=== PATIENT | female | born 1940 | race Hispanic/Latino ===

== ENCOUNTER 2017-12-30 15:45 | Outpatient (CLI) | payer MEDICARE | END 2017-12-30 15:46 | disposition home or self-care (01) | LOC: BICMAMMO 15:45 | PROVIDERS: ATTEND Family Medicine | DX: Z12.31 Encounter for screening mammogram for malignant neoplasm of breast (principal) | CPT/HCPCS: 77063; 77067 ==

== ENCOUNTER 2018-01-21 14:48 | Outpatient (CLI) | payer MEDICARE | END 2018-01-21 14:49 | disposition home or self-care (01) | LOC: BICRAD 14:48 | PROVIDERS: ATTEND Family Medicine | DX: R10.84 Generalized abdominal pain (principal); Z98.1 Arthrodesis status; Z90.49 Acquired absence of other specified parts of digestive tract | CPT/HCPCS: 71045; 74019 ==

== ENCOUNTER 2018-03-08 08:00 | Outpatient (CLI) | payer MEDICARE | END 2018-03-08 08:01 | disposition home or self-care (01) | LOC: BICMRI 08:00 | PROVIDERS: ATTEND Family Medicine | DX: M51.36 Other intervertebral disc degeneration, lumbar region (principal); M47.896 Other spondylosis, lumbar region; M99.83 Other biomechanical lesions of lumbar region; Z98.890 Other specified postprocedural states | CPT/HCPCS: 72148 ==

== ENCOUNTER 2018-03-25 09:32 | Outpatient (CLI) | payer MEDICARE ==
--- NOTE | 2018-03-25 11:28 | RAD ---
LUMBAR SPINE 3 VIEWS: HISTORY: A 77-year-old female with low back pain and left leg numbness. COMPARISON: 01/22/17. FINDINGS: Standing neutral, flexion, and extension lateral views demonstrate extensive postop laminectomy montilla es of the lower lumbar spine with pedicle screw placement at L5-S1 with intradiskal prosthesis. No a bnormal translation between flexion and extension overall stable from prior study. IMPRESSION: Stable postoperative changes. No significant abnormal translation between flexion and extension. POS: OFF
== END 2018-03-25 09:33 | disposition home or self-care (01) ==
LOC: TBSIIMAG 09:32
PROVIDERS: ATTEND Neurological Surgery
DX: M48.061 Spinal stenosis, lumbar region without neurogenic claudication (principal); Z98.890 Other specified postprocedural states
CPT/HCPCS: 72100

== ENCOUNTER 2018-08-12 23:13 | Emergency (ER) | payer MEDICARE ==
[2018-08-13] MEDS ORDERED: cloNIDine 0.1 MG TAB ONE (00:02)
[2018-08-13] MEDS ORDERED: Ketorolac Tromethamine 30 MG/ML VIAL ONE (00:18)
[2018-08-13] MEDS ORDERED: Methocarbamol 500 MG TAB PO SCH (00:30)
[2018-08-13 00:34] LABS: #Basophils 0.1 thou/uL (0.0-0.2); #Eosinphils 0.2 thou/uL (0.0-0.7); #Lymphocytes 2.1 thou/uL (1.20-3.40); #Monocytes 0.5 thou/uL (0.11-0.59); #Neutrophils 3.8 thou/uL (1.40-6.50); %Basophils 1.1 % (0.0-1.0); %Eosinophils 2.4 % (0.0-10.0); %Lymphocytes 31.6 % (21.0-51.0); %Monocytes 6.9 % (0.0-10.0); Hemoglobin 11.2 g/dL (12.0-16.0); Mean Corpuscular HGB CONC 32.4 g/dL (32.0-36.0); Mean Corpuscular Hemoglobin 29.6 pg (27.0-31.0); Mean Corpuscular Volume 91.4 fL (78.0-98.0); Mean Platelet Volume 7.3 fL (7.4-10.4); Platelet Count 227 thou/uL (130-400); RBC Distribution Width 12.9 % (11.5-14.5); Red Blood Cell (RBC) Count 3.78 mill/uL (4.20-5.40); White Blood Cell (WBC) Count 6.5 thou/uL (4.8-10.8)
[2018-08-13 00:54] LABS: ALT (SGPT) 23 U/L (8-55); AST (SGOT) 23 U/L (5-34); Albumin 4.3 g/dL (3.4-4.8); Alkaline Phosphatase 119 U/L (40-150); Anion Gap 14 mmol/L (10-20); BUN (Urea Nitrogen) 22 mg/dL (9.8-20.1); Bilirubin, Total 0.3 mg/dL (0.2-1.2); CK (CPK) 233 U/L (29-168); Calc. Creatinine Clearance 0 mL/min (70-130); Calcium 9.4 mg/dL (7.8-10.44); Carbon Dioxide 23 mmol/L (23-31); Chloride 103 mmol/L (98-107); Estimated GFR-MDRD 47; Globulin 3.3 g/dL (2.4-3.5); Glucose 96 mg/dL (83-110); Potassium 3.7 mmol/L (3.5-5.1); Protein, Total 7.6 g/dL (6.0-8.3); Sodium 136 mmol/L (136-145)
[2018-08-13 00:59] LABS: CKMB 2.6 ng/mL (0-6.6); Troponin I Less than 0.010 ng/mL (< 0.028)
[2018-08-13] MEDS ORDERED: traMADol HCl 50 MG TAB ONE (01:17)
== END 2018-08-13 01:51 | disposition home or self-care (01) ==
LOC: ERS 23:13
DX: M79.605 Pain in left leg (principal); I10 Essential (primary) hypertension; E11.9 Type 2 diabetes mellitus without complications; E78.00 Pure hypercholesterolemia, unspecified
CPT/HCPCS: 36415; 80053; 82550; 82553; 84484; 85025; 93005; 96372; J1885

== ENCOUNTER 2018-08-19 14:44 | Outpatient (CLI) | payer MEDICARE ==
--- NOTE | 2018-08-19 15:28 | RAD ---
LUMBAR SPINE RADIOGRAPHS 3 VIEWS: DATE: 08/19/18. PROVIDED CLINICAL HISTORY: Radiculopathy. FINDINGS: Comparison 03/25/18. Postoperative changes as previously described are redemonstrated without evidence for hardware loosening or migration. Lumbar alignment appears unchanged. There is no evidence for abnormal translational motion with flexion and extension. IMPRESSION: As above. POS: [facility]AG[facility]
== END 2018-08-19 14:45 | disposition home or self-care (01) ==
LOC: BICRAD 14:44
PROVIDERS: ATTEND Neurological Surgery
DX: M54.16 Radiculopathy, lumbar region (principal); Z98.890 Other specified postprocedural states
CPT/HCPCS: 72100

== ENCOUNTER 2018-08-27 13:34 | Outpatient (CLI) | payer MEDICARE ==
--- NOTE | 2018-08-31 23:45 | ULT ---
LOWER EXTREMITY ARTERIAL EVALUATION USING DOPPLER WAVEFORM ANALYSIS AND SEGMENTAL LIMB PRESSURES: Examination of the Doppler waveforms in both lower extremities are essentially normal bilaterally. A nkle-arm index on the right leg is 0.96 and on the left leg is 1.2. Toe-brachial index is slightly b elow normal bilaterally. This study suggests normal overall vascular supply to the lower extremities. Decreased digital plet hysmography could be consistent with her history of diabetes, but would not be consistent with any va scular claudication or ischemic rest pain.
== END 2018-08-27 13:35 | disposition home or self-care (01) ==
LOC: ULT 13:34
PROVIDERS: ATTEND Family Medicine
DX: I73.9 Peripheral vascular disease, unspecified (principal)
CPT/HCPCS: 93922

== ENCOUNTER 2018-10-25 17:20 | Emergency (ER) | payer MEDICARE ==
--- NOTE | 2018-10-25 18:36 | RAD ---
PORTABLE CHEST: Date: 10/25/18 HISTORY: Chest pain. COMPARISON: 02/12/15 study. FINDINGS: Heart size and mediastinum are within normal limits. The lungs are clear of infiltrates. No significa nt bony findings. IMPRESSION: No active intrathoracic disease. POS: [facility]
[2018-10-25 18:40] LABS: #Lymphocytes 0.5 thou/uL (1.20-3.40); #Neutrophils 6.3 thou/uL (1.40-6.50); %Basophils 0.2 % (0.0-1.0); %Eosinophils 0.1 % (0.0-10.0); %Lymphocytes 7.4 % (21.0-51.0); %Monocytes 0.6 % (0.0-10.0); %Neutrophils 91.8 % (42.0-75.0); Hemoglobin 11.6 g/dL (12.0-16.0); Mean Corpuscular HGB CONC 33.8 g/dL (32.0-36.0); Mean Corpuscular Hemoglobin 31.2 pg (27.0-31.0); Mean Corpuscular Volume 92.2 fL (78.0-98.0); Mean Platelet Volume 6.9 fL (7.4-10.4); Platelet Count 311 thou/uL (130-400); RBC Distribution Width 12.7 % (11.5-14.5); Red Blood Cell (RBC) Count 3.72 mill/uL (4.20-5.40); White Blood Cell (WBC) Count 6.9 thou/uL (4.8-10.8)
[2018-10-25 18:49] LABS: Bilirubin Negative (Negative); Blood, Urine Negative (Negative); Clarity CLEAR (Clear); Glucose, Urine (Dipstick) >=1000 mg/dL (Negative); Leukocyte Negative (Negative); Nitrite Negative (Negative); Protein, Urine (Dipstick) Negative (Neg-Trace); Specific Gravity, Urine 1.016 (1.002-1.036); Urobilinogen 0.2 mg/dL (0.2-1.0); pH, Urine 6.5 (5.0-9.0)
[2018-10-25 18:58] LABS: CKMB 1.2 ng/mL (0-6.6); Troponin I Less than 0.010 ng/mL (< 0.028)
[2018-10-25 19:01] LABS: ALT (SGPT) 17 U/L (8-55); AST (SGOT) 21 U/L (5-34); Albumin 4.1 g/dL (3.4-4.8); Alkaline Phosphatase 110 U/L (40-150); Anion Gap 16 mmol/L (10-20); BUN (Urea Nitrogen) 28 mg/dL (9.8-20.1); Bilirubin, Total 0.2 mg/dL (0.2-1.2); CK (CPK) 81 U/L (29-168); Calc. Creatinine Clearance 0 mL/min (70-130); Calcium 9.6 mg/dL (7.8-10.44); Carbon Dioxide 19 mmol/L (23-31); Chloride 101 mmol/L (98-107); Estimated GFR-MDRD 37; Globulin 3.8 g/dL (2.4-3.5); Glucose 422 mg/dL (83-110); Lipase 42 U/L (8-78); Potassium 4.8 mmol/L (3.5-5.1); Protein, Total 7.9 g/dL (6.0-8.3); Sodium 131 mmol/L (136-145)
[2018-10-25] MEDS ORDERED: Insulin Regular 300 UNITS/3 ML VIAL ONE (19:09)
== END 2018-10-25 20:00 | disposition home or self-care (01) ==
LOC: ERS 17:20
DX: E11.65 Type 2 diabetes mellitus with hyperglycemia (principal); I10 Essential (primary) hypertension; Z79.899 Other long term (current) drug therapy
CPT/HCPCS: 36416; 71045; 80053; 81003; 82010; 82553; 83690; 83880; 84484; 85025; 93005; 96374; J1100; J1815; J2001; S0020

== ENCOUNTER 2019-01-03 08:30 | Outpatient (CLI) | payer MEDICARE | END 2019-01-03 08:31 | disposition home or self-care (01) | LOC: BICMAMMO 08:30 | PROVIDERS: ATTEND Family Medicine | DX: Z12.31 Encounter for screening mammogram for malignant neoplasm of breast (principal) | CPT/HCPCS: 77063; 77067 ==

== ENCOUNTER 2019-02-15 15:48 | Outpatient (CLI) | payer MEDICARE ==
--- NOTE | 2019-02-15 16:35 | RAD ---
FLeft hip: 2 views HISTORY: Fall with injury to left heel FINDINGS: Femoral head contour normally preserved. No fracture. Mild degenerative change. IMPRESSION: No acute fracture identified.
--- NOTE | 2019-02-15 16:48 | RAD ---
LUMBAR SPINE FOUR VIEWS: 02/15/19 HISTORY: Fall. Low back pain. FINDINGS: There is mild dextroscoliosis of the lumbar spine with degenerative changes. There are postop changes of posterior spinal fusion at L4 and L5 levels with bilateral pedicle screws and intradiscal prostheses. No compression fracture is seen. The metallic hardware is intact. Postop changes of the laminectomy are seen at L2-L5 levels. POS: OFF
== END 2019-02-15 15:49 | disposition home or self-care (01) ==
LOC: BICRAD 15:48
PROVIDERS: ATTEND Family Medicine
DX: M25.552 Pain in left hip (principal); M54.5 Low back pain
CPT/HCPCS: 72110

== ENCOUNTER 2019-03-14 08:53 | Outpatient (CLI) | payer MEDICARE ==
--- NOTE | 2019-03-14 09:56 | ULT ---
Renal sonogram HISTORY: N18.3. Chronic renal disease. FINDINGS: The right kidney is 9.8 cm. No hydronephrosis. Parapelvic cyst centrally is 1.5 cm greatest diameter. Left kidney is 8.2 cm. No hydronephrosis. Urinary bladder has a normal appearance. Bilateral ureteral jets visualized. IMPRESSION: No evidence of urinary tract obstruction or other acute abnormality. Right renal cyst.
== END 2019-03-14 08:54 | disposition home or self-care (01) ==
LOC: BICULT 08:53
PROVIDERS: ATTEND Internal Medicine Nephrology
DX: N18.3 Chronic kidney disease, stage 3 (moderate) (principal); N28.1 Cyst of kidney, acquired
CPT/HCPCS: 76770

== ENCOUNTER 2019-04-04 10:03 | Outpatient (CLI) | payer MEDICARE ==
--- NOTE | 2019-04-04 11:23 | BD ---
DEXA BONE DENSITY EXAM: HISTORY: A 78-year-old postmenopausal female for screening. FINDINGS: BMD (g/cm2) T-SCORE LEFT FEMORAL NECK 0.678 -1.5 TOTAL PROXIMAL LEFT FEMUR 0.936 -0.1 RIGHT FEMORAL NECK 0.741 -1.0 TOTAL PROXIMAL RIGHT FEMUR 0.965 0.2 IMPRESSION: Osteopenia. This patient has a 10 year WHO fracture risk for a major osteoporotic fracture of 15% an d for a hip fracture of 3.3%. POS: [facility]
== END 2019-04-04 10:04 | disposition home or self-care (01) ==
LOC: BICMAMMO 10:03
PROVIDERS: ATTEND Internal Medicine Gastroenterology
DX: Z13.820 Encounter for screening for osteoporosis (principal); M19.90 Unspecified osteoarthritis, unspecified site; K21.9 Gastro-esophageal reflux disease without esophagitis; R10.32 Left lower quadrant pain; M85.851 Other specified disorders of bone density and structure, right thigh; M85.852 Other specified disorders of bone density and structure, left thigh
CPT/HCPCS: 77080

== ENCOUNTER 2019-04-28 09:01 | Outpatient (CLI) | payer MEDICARE ==
--- NOTE | 2019-04-28 11:20 | ULT ---
ULTRASOUND THYROID: Date: 04/28/19 HISTORY: Follow-up thyroid nodule. COMPARISON: Thyroid ultrasound of 12/17/15, images of ultrasound-guided fine needle aspiration of thyroid on 02/22 03/07. FINDINGS: Isthmus: 0.4 cm AP Right lobe: 5.2 x 2.0 x 1.2 cm Left lobe: 6.4 x 2.0 x 2.9 cm Again noted is the solid nodule at the lower pole of the left lobe measuring 2.6 x 2.6 x 2.3 cm. Its echogenicity is slightly heterogeneous. Margins are well circumscribed. There is some blood flow with in it. This has not grown since the previous ultrasounds. Composition: Solid: 2.2 points Echogenicity: Isoechoic: 1 point Shape: Wider than tall: 0.2 points Margin: Smooth: 0.2 points Echogenic foci: None: 0 points Total Points: 3 TI-RADS Category 3: Mildly suspicious. RECOMMENDATION: FNA if greater than or equal to 2.5 cm. Follow-up if greater than or equal to 1.5 cm (at 1, 3, and 5 years). This meets the criteria for fine needle aspiration. Ultrasound-guided fine needle aspiration was performed in 2014. The pathology results of that are unk nown to this dictating radiologist at this time ([facility] access [facility] from dictating site). One more follow-up thyroid ultrasound is recommended for this in 2020, which would be the 5 year velma versary of its discovery. Barely visible on this ultrasound, and not mentioned by the welt slasher's notes, the superior edge of a hyperechoic rim with shadowing, abutting the inferior edge of this large nodule at the lower pole of the left lobe of the thyroid gland. But the rest of this hyperechoic mass is obscured by the clavi irvin. It is noted that on a CT angiogram of the neck from 2015, there was a large, coarse calcificatio n, inferior to the noncalcified nodule, that probably corresponds to this. Two additional tiny hypoechoic nodules are found on the current study: A 0.3 x 0.3 x 0.2 cm hypoechoic probably cystic lesion at lower pole of right lobe, highly likely to be benign. A 0.5 x 0.4 x 0.3 cm hypoechoic nodule, too small to characterize, but slightly favored to be solid, near the junction between the medial lower pole of the right lobe and the isthmus: Composition: Assumed to be solid: 2 points Echogenicity: Very hypoechoic: 3 points Shape: Taller than wide: 3 points Margin: Ill-defined: 0 points Echogenic foci: None: 0 points Total points: 8 TI-RADS category 5: Highly suspicious RECOMMENDATION: FNA if greater than or equal to 1 cm. Follow if greater than or equal to 0.5 cm (every year up to 5 years). IMPRESSION: 1. The TI-RADS category 3 solid nodule measuring slightly over 2.6 cm in the lower pole of the left thyroid gland, has been stable for 4 years. A final follow-up ultrasound next year would be the last follow-up necessary for this particular lesion. 2. Incompletely visualized on ultrasound (because it is obscured by clavicle), and originally found on CT angiogram of the chest, a moderate sized coarse macrocalcification at the far inferior pole of the left lobe of the thyroid gland is probably benign. 3. However, a tiny 0.5 cm TI-RADS category 5 (highly suspicious) nodule has been now found at the ju nction between the right side of the isthmus and medial lower pole of the right lobe. It is too small for fine needle aspiration. Recommend serial follow-up thyroid ultrasounds very year up to 5 years. CODE T. POS: CET
== END 2019-04-28 09:02 | disposition home or self-care (01) ==
LOC: BICULT 09:01
PROVIDERS: ATTEND Otolaryngology Plastic Surgery within the Head & Neck
DX: E04.1 Nontoxic single thyroid nodule (principal); E07.9 Disorder of thyroid, unspecified
CPT/HCPCS: 76536

== ENCOUNTER 2019-07-15 09:49 | Outpatient (CLI) | payer MEDICARE ==
[2019-07-15 11:03] LABS: Hemoglobin 11.4 g/dL (12.0-16.0); Mean Corpuscular Hemoglobin 30.3 pg (27.0-31.0); Mean Corpuscular Volume 89.3 fL (78.0-98.0); Mean Platelet Volume 7.1 fL (7.4-10.4); Platelet Count 241 thou/uL (130-400); Red Blood Cell (RBC) Count 3.77 mill/uL (4.20-5.40); White Blood Cell (WBC) Count 5.5 thou/uL (4.8-10.8)
[2019-07-15 11:09] LABS: PTT 32.8 SEC (22.9-36.1); Prothrombin Time 13.3 SEC (12.0-14.7)
== END 2019-07-15 09:50 | disposition home or self-care (01) ==
LOC: LABBT 09:49
PROVIDERS: ATTEND Neurological Surgery
DX: Z01.818 Encounter for other preprocedural examination (principal); M48.061 Spinal stenosis, lumbar region without neurogenic claudication; M54.16 Radiculopathy, lumbar region
CPT/HCPCS: 85027; 85610; 85730; 93005; 93010

== ENCOUNTER 2019-07-15 09:57 | Inpatient (IN) | payer MEDICARE ==
[2019-07-15 10:13] VITALS: BMI 34.3
--- NOTE | 2019-07-20 14:23 | HP ---
HISTORY OF PRESENT ILLNESS: Ms. Bryan is back in the office. She has tried some physical therapy for at least 4 weeks. The left leg is worse. The pain is over the greater trochanteric bursa, but also wraps to the knee itself. There is pain with standing for too long that response to repositioning of the back and sitting. Therapy with IT band stretching makes pain worse. PAST MEDICAL HISTORY: Hypertension, arthritis, high cholesterol, gait instability, thyroid nodule , diabetes, allergic rhinitis, external hemorrhoid, osteoarthritis bilateral, GERD, and chronic diarrhea. ALLERGIES: CHERATUSSIN. MEDICATIONS: 1. ProAir. 2. Nexium. 3. Premarin. 4. Calcium. 5. Iron supplement. 6. Myrbetriq. 7. Salonpas. 8. Atorvastatin. 9. Spironolactone. 10. Glyburide. 11. Mobic. 12. Atenolol. 13. Tylenol No. 3. 14. Cyclobenzaprine. 15. Medrol. PAST SURGICAL HISTORY: Right breast biopsy, knee arthroscopy, , tonsillectomy, left foot bunion hammertoe, cataract surgery, carpal tunnel bilaterally, rotator cuff right shoulder, laparoscopic gallbladder, lumbar laminectomy and fusion, left total knee. FAMILY HISTORY: Father is . Mother is , hypertension. SOCIAL HISTORY: Nonsmoker. Denies alcohol or drug use. She is retired and , has 11 children. PHYSICAL EXAMINATION: CONSTITUTIONAL: The patient is awake, alert, and oriented x3. No visible distress. RESPIRATIONS: Normal work of breathing on room air. Symmetric chest rise. NEUROLOGIC: Gait and station are normal. Motor exam, mild left hip flexor weakness and pain. Sensory exam, no loss of sensation except for length dependent peripheral lower extremity exam. Orthopedic tender left greater trochanteric bursa. IMAGING DATA: MRI, foraminal disease left L4 and L3 roots just above fusion. CT, pars fracture right L4, not on the left. Flexion-extension x-rays are stable. ASSESSMENT: Fracture of the fourth lumbar vertebra, intervertebral disk disorder with radiculopathy. PLAN: Dr. Mendiola has offered surgery left L3, L4 decompression with extension of fusion. She states that she understands the risks of surgery and is willing to proceed. Job ID: [id number]
[2019-07-22] MEDS ORDERED: Bupivacaine HCl 0.5%/Epinephrine 1:200,000/PF 30 ml Vial ONE (06:17)
[2019-07-22] MEDS ORDERED: Sodium Chloride 0.9% 30 ML ONE (06:17)
[2019-07-22] MEDS ORDERED: Thrombin 5000 UNITS/5 ML VIAL ONE (06:17)
[2019-07-22] MEDS ORDERED: Fentanyl 100 MCG/2 ML VIAL ONE ×4 (06:30→15:06)
[2019-07-22] MEDS ORDERED: Famotidine/PF 20 mg/2ml Vial ONE (06:30)
[2019-07-22] MEDS ORDERED: Lidocaine 1% PF 5 ML VIAL ONE (09:27)
[2019-07-22] MEDS ORDERED: Rocuronium Bromide 10 MG/ML (10ML VIAL) ONE (09:27)
[2019-07-22] MEDS ORDERED: Dexamethasone 20 MG/5 ML VIAL ONE (09:27)
[2019-07-22] MEDS ORDERED: ePHEDrine 50 MG/ML VIAL ONE (09:27)
[2019-07-22] MEDS ORDERED: Ondansetron PF 4 MG/2 ML Vial ONE (09:27)
[2019-07-22] MEDS ORDERED: Ketorolac Tromethamine 30 MG/ML VIAL ONE (09:27)
[2019-07-22] MEDS ORDERED: PROPOFOL 200 MG/20 ML VIAL ONE (09:27)
[2019-07-22] MEDS ORDERED: Metoclopramide HCl 10 MG/2 ML VIAL ONE (09:27)
[2019-07-22] MEDS ORDERED: SUGAMMADEX SODIUM 500 MG/5 ML VIAL ONE (13:50)
[2019-07-22] MEDS ORDERED: Ondansetron HCl/PF 4 MG/2 ML Vial IVP PRN (14:01)
[2019-07-22] MEDS ORDERED: Morphine 2 MG/ML SYRINGE SLOW IVP PRN (14:25)
[2019-07-22] MEDS ORDERED: Morphine 4 MG/ML VIAL SLOW IVP PRN (14:25)
[2019-07-22] MEDS ORDERED: Ondansetron PF 4 MG/2 ML Vial IVP PRN (14:25)
[2019-07-22] MEDS ORDERED: Promethazine 25 MG TAB PO PRN (14:25)
[2019-07-22] MEDS ORDERED: diphenhydrAMINE 50 MG/ML VIAL IVP PRN (14:25)
[2019-07-22] MEDS ORDERED: Mag-Al 1200 mg/1200 mg/30 ML UDCUP PO PRN (14:25)
[2019-07-22] MEDS ORDERED: traMADol HCl 50 MG TAB PO PRN (14:25)
[2019-07-22] MEDS ORDERED: Bisacodyl 10 MG SUPP PR PRN (14:25)
[2019-07-22] MEDS ORDERED: Promethazine HCl 25 MG/ML VIAL IM PRN (14:25)
[2019-07-22] MEDS ORDERED: Acetaminophen 325 MG TAB PO PRN (14:25)
[2019-07-22] MEDS ORDERED: Milk Of Magnesia 30 ML UDCUP PO PRN (14:25)
[2019-07-22] MEDS ORDERED: CEFAZOLIN 2 GM in Premix Bag 1 BAG IVPB SCH ×2 (14:30→22:00)
[2019-07-22] MEDS: Sodium Chloride 0.9% 1,000 ML IV SCH (17:36)
[2019-07-22] MEDS ORDERED: Dextrose 5% in Water 1,000 ML IV PRN (18:07)
[2019-07-22] MEDS ORDERED: hydrALAZINE 20 MG/ML VIAL SLOW IVP PRN (18:07)
[2019-07-22] MEDS ORDERED: Dextrose 50% Abboject 50 ML SYRINGE SLOW IVP PRN (18:07)
[2019-07-22] MEDS: CEFAZOLIN 2 GM in Premix Bag 1 BAG IVPB SCH (18:11)
--- NOTE | 2019-07-22 18:42 | CON ---
DATE OF CONSULTATION: PRIMARY CARE PHYSICIAN: Marybeth Garza MD CHIEF COMPLAINT: Management of medical comorbidities. HISTORY OF PRESENT ILLNESS: Ms. Bryan is a pleasant 79-year-old lady, who was seen at [facility] on July 22, 2019. She underwent lumbar spine surgery. Hospitalist Service has been consulted for management of medical comorbidities. She denies any chest pain or shortness of breath. She denies any fevers or chills. She denies any nausea or vomiting. REVIEW OF SYSTEMS: All systems were reviewed and found to be negative. PAST MEDICAL HISTORY: Hypertension, arthritis, dyslipidemia, thyroid nodule, diabetes mellitus type 2, external hemorrhoids, gastroesophageal reflux disease, chronic diarrhea. PAST SURGICAL HISTORY: Right breast biopsy, knee arthroscopy, left foot bunion, hammertoe, tonsillectomy, cataract surgery, carpal tunnel bilaterally, rotator cuff of right shoulder, laparoscopic cholecystectomy, lumbar laminectomy and fusion, and left total knee replacement. FAMILY HISTORY: Hypertension in her mother. SOCIAL HISTORY: The patient denies tobacco use, alcohol use, or recreational drug use. ALLERGIES: NO KNOWN DRUG ALLERGIES. HOME MEDICATIONS: 1. Atenolol 50 mg daily. 2. Atorvastatin 20 mg daily. 3. Flexeril 10 mg at bedtime. 4. Esomeprazole 40 mg daily. 5. Glimepiride 1 mg daily. 6. Meloxicam 7.5 mg 2 times a day. 7. Multivitamins one tablet daily. 8. Spironolactone 50 mg daily. PHYSICAL EXAMINATION: GENERAL: On examination, Ms. Bryan is awake and alert, not in acute distress. VITAL SIGNS: Blood pressure is 117/73, pulse 73, respiratory rate 14, and oxygen saturation 96% on room air. She is afebrile. EYES: No scleral icterus. No conjunctival pallor. ENT: Moist mucosal membranes. No oropharyngeal erythema or exudates. NECK: Supple, nontender. Trachea is midline. RESPIRATORY: Accessory muscles of breathing are not active. Chest wall movements are symmetric bilaterally. Lungs are clear to auscultation without wheeze, rhonchi, or crepitations. CARDIOVASCULAR: S1 and S2 are heard, regular. Peripheral pulses are palpable. No carotid bruit. No pericardial rub. ABDOMEN: Soft, nontender. Bowel sounds are heard. NEUROLOGIC: Cranial nerves 2 through 12 are intact. MUSCULOSKELETAL: Power is 5/5 in all 4 extremities. SKIN: No rashes or subcutaneous nodules. LYMPHATIC: No cervical lymphadenopathy. PSYCHIATRIC: Normal mood, normal affect. The patient is oriented to person, place, and time. LABORATORY DATA: Ms. Bryan's labs and investigations were reviewed. On July 15, she had normal white count, normocytic anemia with hemoglobin 11.4, normal platelet count. INR was 1.0. ASSESSMENT AND PLAN: Ms. Bryan is a pleasant 79-year-old lady, who was seen at [facility] on July 22, 2019. Her problem list includes: 1. Hypertension: This appears to be controlled now. Continue beta-valente during the perioperative period. Monitor vital signs and titrate antihypertensives as needed. Add p.r.n. IV hydralazine for blood pressure spikes. 2. Diabetes mellitus, type 2: Continue glimepiride. Start Accu-Cheks and insulin sliding scale. 3. Dyslipidemia: Continue atorvastatin. 4. Gastroesophageal reflux disease: Appears to be stable. Many thanks for allowing me to participate in your patient's care. Please feel free to contact me with any questions or concerns. LEVEL OF RISK: Moderate. LEVEL OF COMPLEXITY: Moderate. Job ID: [id number]
--- NOTE | 2019-07-22 20:10 | OP ---
DATE OF PROCEDURE: 07/22/2019 [facility] DEVELOPER: Khalida Lo PA-C PREOPERATIVE INDICATION: Treat pain and prevent neurological deterioration. 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 POSTOPERATIVE DIAGNOSES: Severe left L3-4 and left L4-5 foraminal stenosis with a left L3 and L4 radiculopathies, L4 pars fracture, prior lumbar decompression L3-S1, prior lumbar fusion of L3-L6, prior lumbar fusion L5-L6 (extra lumbar segment), and dural erosion from the remnant of L3 lamina. PROCEDURES PERFORMED: Reopening lumbar incision, exploration of lumbar fusion, removal of lumbar instrumentation L5-L6; repeat decompressive laminectomy, medial facetectomy, foraminotomy, L2-L3, L3-L4; transforaminal lumbar interbody arthrodesis, L3-L4; transforaminal lumbar interbody arthrodesis, L4-L5; pedicle screw and wai instrumentation L3 and L4 attached to L5 and L6; posterolateral arthrodesis, L3-4, L4-5, L5-L6; local morselized autograft, morselized allograft, operating microscope, microsurgical repair of dura from bony erosion thereof. PREOPERATIVE MEDICATION: Ancef 2 g IV. DRAIN NUMBER: Zero. DRAIN TYPE: None. INDICATIONS FOR PROCEDURE: The patient was brought to the operating room. General endotracheal anesthesia was induced. The patient was positioned prone on the Adebayo frame with the chest and hips supported by the appropriate attachments of the Adebayo frame. A lateral fluoro radiograph confirmed her previous incision could give us access from L2 to L6 segments of the lumbar spine. The lumbar skin was sterilely prepped and draped. We reopened her previous incision and extended superiorly. We dissected through scar tissue with monopolar cautery until we reached the thoracodorsal fascia. We incised the fascia in the midline and reflected the paraspinal muscles off the spinous process and lamina of L2, the remnant of L3 and over the previous decompression from L3 to L6. We carried our dissection over to the pedicle screws and rods at L5 and L6 and placed self-retaining retractors. A lateral fluoro radiograph confirmed the levels upon which we were operating. We began the operation with our decompression. With an Adson rongeur, we removed the spinous process of L2. With Kerrison rongeur, we fashioned L2-3 laminectomy with medial facetectomy to decompress the lateral recess around the L3 nerve root as well as foraminotomies of the L3 nerve roots. We worked our way downward into scar tissue. A remnant of the L3 lamina was densely adherent to the dura. This lamina had eroded through the dura. We carefully dissected around it and found no way to preserve intact dura. We brought a high-speed drill into the field and the operating microscope. Under microscopic magnification using microsurgical techniques, we carefully drilled the lateral to the bony erosion. There was a free-floating piece of bone left on the dura. We had intact dura laterally, inferiorly, superiorly, and medially. Finally, we had used sharp dissection to literally cut this bone away from the dura leaving an oblong-shaped hole through which nerve roots were visible and there was thickened arachnoid from the chronic inflammation there. We brought a bovine pericardial patch into the field. Using microsurgical techniques, we sewed the patch into the dural defect and used Valsalva maneuvers to prove watertightness. We then continued with our decompression. For two reasons, we elected to instrument all the way to L3. First, there was significant laxity in the L3-4 facet joint with excursion much more than average. Second, we drilled away enough bone laterally that there was only a tiny rim of pars left at L3 and I felt this would not be sufficient for bony stability. It would also give us a chance to widely decompress the left-sided neural foramina by performing complete facetectomy at L3-L4 and L4-L5. This was done, and this indeed gave us excellent access to the nerve roots. Inferior to each of the nerve roots, we incised the disk space under the microscope. We removed disk contents using curettes and rongeurs at L3-L4 and L4-L5. We used curettes to prepare the endplates for grafting and then measured the height of the interspace to 9 mm at both of the interspaces. Two separate 9 mm PEEK intervertebral grafts were brought into the field. Each graft was loaded with demineralized bone matrix and morselized autograft. We prepared the autograft on the back table by morselizing all our laminectomy bone and adding into our demineralized bone matrix to form the fusion substrate. Once the interbody grafts were in position, we turned our attention to pedicle screw instrumentation. The operative microscope was taken out of the field. Using bony anatomic landmarks, palpation of the medial portion of the pedicles, and a lateral fluoro radiograph as our guide, we chose entry points for the L3 and L4 pedicle screws. We used a bone awl to advance trajectories through the pedicles into the vertebral body and then we tapped each trajectory with a threaded tap. We probed the trajectories and found them completely encased in bone. We then placed pedicle screws at L3 and L4 bilaterally. We irrigated with bacitracin irrigation. We turned our attention to the previous fusion. Using the counter-torque device and the appropriate food mobile driver for the previous caps, we carefully removed the caps over the previous rods. We removed the rods from the field and inspected the fusion mass bilaterally. We found this was good, but not 100% complete. For the extended rods, we used a wai template and then brought the appropriately-sized rods into the field and bent them to couple with each screw head from L6 all the way to L3. Once the rods were appropriately bent, we placed them into the screw heads and tightened caps over the rods. We used gentle compressive force across the L3-L4 and L4-5 interspaces to keep the interbody grafts in place. Using a torque/counter-torque mechanism, we ensured adequate tightness. We passed a Maher ball probe through the lateral recess and out the foramen with each of the nerve roots and found that they were still widely decompressed. We irrigated once more with bacitracin irrigation. This was done copiously. We then decorticated the transverse processes at L3 and L4 and then decorticated the fusion mass at L5 and L6. Over all the decorticated bone, we left demineralized bone matrix, morselized autograft as our posterolateral fusion substrate. We infused local anesthetic in the paraspinal muscles. We reinforced our dural closure with DuraSeal tissue sealant. We treated the center of the wound with vancomycin powder and we closed the wound in anatomical layers. We had the sterile dressing. This was a clean case, no contamination. Job ID: [id number]
[2019-07-22] MEDS: Cyclobenzaprine 10 MG TAB PO SCH (21:42)
[2019-07-22] MEDS: HumaLOG 300 UNITS/3 ML VIAL SC PRN (21:49)
[2019-07-22] MEDS: traMADol HCl 50 MG TAB PO PRN (22:11)
[2019-07-22] MEDS: diphenhydrAMINE 25 MG CAP PO PRN (22:11)
[2019-07-23] MEDS: Sodium Chloride 0.9% 1,000 ML IV SCH ×2 (02:26→18:16)
[2019-07-23] MEDS: CEFAZOLIN 2 GM in Premix Bag 1 BAG IVPB SCH ×3 (02:26→18:16)
[2019-07-23] MEDS: Acetaminophen/Codeine 30-300mg Tablet PO PRN ×3 (04:20→18:16)
[2019-07-23] MEDS: Spironolactone 25 MG TAB PO SCH (08:45)
[2019-07-23] MEDS: Atenolol 50 MG TAB PO SCH (08:45)
[2019-07-23] MEDS: Glimepiride 2 MG TAB PO SCH (08:46)
--- NOTE | 2019-07-23 11:01 | PRG ---
DATE OF SERVICE: 07/23/2019 Ms. Bryan is postoperative day 1 from lumbar decompression and fusion. She states she has no leg pain and she moves all extremities without deficit. She frankly looks very good. We do have a brace that we will place when she is up and mobilizing. We will work on that today. Job ID: [id number]
--- NOTE | 2019-07-23 14:48 | PDOC.HOSPP ---
- Subjective Subjective: Seen and examined. Progressing well post op. Having pain, and elevated BP. Was recommended to stay ahead of pain. Tolerating diet. Worked with therapy and did very well per patient. - Objective Vital Signs & Weight: Vital Signs (12 hours) Temp Pulse Resp BP BP Pulse Ox 07/23/19 10:51 97.7 F 66 18 134/70 96 07/23/19 08:23 97.1 F L 73 18 156/71 H 99 07/23/19 04:41 155/68 H 07/23/19 04:04 97.8 F 70 16 171/74 H 100 Weight Weight 200 lb I&O: 07/22/19 07/23/19 07/24/19 06:59 06:59 06:59 Intake Total 1850 Output Total 1250 Balance 600 Additional Labs: Accuchecks 07/23/19 07/23/19 07/22/19 10:32 05:18 20:21 POC Glucose 126 H 129 H 268 H 07/22/19 16:58 POC Glucose 260 H Hospitalist ROS - Medication Medications: Active Medications Generic Name Dose Route Start Last Admin Trade Name Freq PRN Reason Stop Dose Admin Acetaminophen/Codeine Phosphate 2 tab 07/22/19 14:25 07/23/19 13:07 Tylenol #3 PO 2 tab Q3H PRN Administration Moderate Pain (4-6) Atenolol 50 mg 07/23/19 09:00 07/23/19 08:45 Tenormin PO 50 mg QAM NATALIA Administration Cyclobenzaprine HCl 10 mg 07/22/19 21:00 07/22/19 21:42 Flexeril PO 10 mg HS NATALIA Administration Diphenhydramine HCl 25 mg 07/22/19 14:25 07/22/19 22:11 Benadryl PO 25 mg Q6H PRN Administration Itching Glimepiride 1 mg 07/23/19 08:00 07/23/19 08:46 Amaryl PO 1 mg QAM-WM NATALIA Administration Sodium Chloride 1,000 mls @ 75 mls/hr 07/22/19 14:30 07/23/19 02:26 Normal Saline 0.9% IV 1,000 mls .[id number] NATALIA Administration Cefazolin Sodium/Dextrose 2 gm 50 mls @ 100 mls/hr 07/22/19 19:00 07/23/19 11 :21 / Device IVPB 07/24/19 19:01 50 mls 0300,1100,1900 NATALIA Administration Insulin Human Lispro 0 units 07/22/19 18:07 07/22/19 21:49 Humalog SC 4 units .MILD SLIDING SCALE PRN Administration Mild Correctional Scale Pantoprazole Sodium 40 mg 07/23/19 09:00 07/23/19 08:45 Protonix PO 40 mg DAILY NATALIA Administration Pneumococcal 13-Valent Conj Vacc 0.5 ml 07/23/19 17:45 07/23/19 09:46 Prevnar IM 07/23/19 17:46 Not Given .ONCE ONE Spironolactone 50 mg 07/23/19 09:00 07/23/19 08:45 Aldactone PO 50 mg QAM NATALIA Administration Tramadol HCl 100 mg 07/22/19 14:25 07/22/19 22:11 Ultram PO 100 mg Q6H PRN Administration Moderate Pain (4-6) - Exam General Appearance: NAD, awake alert Eye: PERRL Eye - other findings: EOMI ENT: no oropharyngeal lesions, moist mucosa Neck: supple, no JVD Heart: RRR, no murmur, no gallops Respiratory: CTAB, no wheezes, no rales, no ronchi, normal chest expansion Gastrointestinal: soft, non-tender, non-distended, no guarding, no rigidity Extremities: 1+ LE edema Neurological: CN's grossly intact, no weakness, no focal deficits Musculoskeletal: normal strength Psychiatric: normal affect, A&O x 3 Hosp A/P (1) Diabetes mellitus Code(s): E11.9 - TYPE 2 DIABETES MELLITUS WITHOUT COMPLICATIONS Status: Acute (2) HTN (hypertension) Code(s): I10 - ESSENTIAL (PRIMARY) HYPERTENSION Status: Acute (3) HLD (hyperlipidemia) Code(s): E78.5 - HYPERLIPIDEMIA, UNSPECIFIED Status: Acute (4) S/P laminectomy Code(s): Z98.890 - OTHER SPECIFIED POSTPROCEDURAL STATES Status: Acute - Plan Plan: Surgery following, recommendations appreciated Post op care PT/ OT Pain control BP elevated at this time likely secondary to uncontrolled pain, will monitor on home BP medications and assess when pain is better controlled DM diet Continue home medications as able ISS - low as needed GI PPX DVT PPX
[2019-07-23] MEDS: tiZANidine HCl 4 MG TAB PO PRN (15:52)
[2019-07-23] MEDS ORDERED: Prevnar 13-Val Conj/PF 0.5 ML SYRINGE IM ONE (17:45)
[2019-07-23] MEDS: Cyclobenzaprine 10 MG TAB PO SCH (20:31)
[2019-07-23] MEDS: Atorvastatin Calcium 20 MG TAB PO SCH (20:31)
[2019-07-23] MEDS: diphenhydrAMINE 25 MG CAP PO PRN (20:40)
[2019-07-24] MEDS: CEFAZOLIN 2 GM in Premix Bag 1 BAG IVPB SCH ×3 (03:33→18:09)
[2019-07-24] MEDS: Acetaminophen/Codeine 30-300mg Tablet PO PRN ×3 (08:19→18:09)
[2019-07-24] MEDS: Atenolol 50 MG TAB PO SCH (08:20)
[2019-07-24] MEDS: Glimepiride 2 MG TAB PO SCH (08:20)
[2019-07-24] MEDS: Spironolactone 25 MG TAB PO SCH (08:20)
[2019-07-24] MEDS: Sodium Chloride 0.9% 1,000 ML IV SCH (08:21)
--- NOTE | 2019-07-24 10:57 | PRG ---
DATE OF SERVICE: 07/24/2019 This is Curly Thurston PA-C dictating a report for Christiano Cortes MD. Postoperative recheck. Ms. Bryan is postoperative day #2 having undergone multilevel lumbar laminectomies with Dr. Mendiola. The patient complains of burning into her back at the incision site. She has no hip, buttock, or leg pain. She has been up walking in her room. She remains with good strength in the bilateral lower extremities. She does not have a drain in place. We will now work on pain control as well as disposition and we will continue her antibiotics with home prescription of Keflex. Please call with any changes in patient's neurologic status. Otherwise, the patient is progressing well and will simply take time for her pain to improve postoperatively. Job ID: [id number]
[2019-07-24] MEDS: HumaLOG 300 UNITS/3 ML VIAL SC PRN (11:41)
[2019-07-24] MEDS: tiZANidine HCl 4 MG TAB PO PRN (12:30)
--- NOTE | 2019-07-24 14:25 | PDOC.HOSPP ---
- Subjective Subjective: Seen and examined. Walking laps around the [place]. States that pain in the back is better. No longer having any pain or weakness in the legs like before. Clinically improving. - Objective Vital Signs & Weight: Vital Signs (12 hours) Temp Pulse Resp BP BP BP Pulse Ox 07/24/19 11:15 99.6 F 78 18 145/70 H 96 07/24/19 08:20 166/67 H 07/24/19 07:19 98.5 F 78 20 114/67 92 L 07/24/19 03:55 98.4 F 71 16 110/61 96 Weight Weight 200 lb I&O: 07/23/19 07/24/19 07/25/19 06:59 06:59 06:59 Intake Total 1850 3215 Output Total 1250 1100 Balance 600 2115 Additional Labs: Accuchecks 07/24/19 07/24/19 07/23/19 11:20 05:27 21:59 POC Glucose 172 H 65 L 165 H 07/23/19 16:22 POC Glucose 134 H Hospitalist ROS - Medication Medications: Active Medications Generic Name Dose Route Start Last Admin Trade Name Freq PRN Reason Stop Dose Admin Acetaminophen/Codeine Phosphate 1 tab 07/22/19 14:25 07/24/19 12:30 Tylenol #3 PO 1 tab Q3H PRN Administration Mild Pain (1-3) Acetaminophen/Codeine Phosphate 2 tab 07/22/19 14:25 07/24/19 08:19 Tylenol #3 PO 2 tab Q3H PRN Administration Moderate Pain (4-6) Atenolol 50 mg 07/23/19 09:00 07/24/19 08:20 Tenormin PO 50 mg QAM NATALIA Administration Atorvastatin Calcium 20 mg 07/23/19 21:00 07/23/19 20:31 Lipitor PO 20 mg HS NATALIA Administration Cyclobenzaprine HCl 10 mg 07/22/19 21:00 07/23/19 20:31 Flexeril PO 10 mg HS NATALIA Administration Diphenhydramine HCl 25 mg 07/22/19 14:25 07/23/19 20:40 Benadryl PO 25 mg Q6H PRN Administration Itching Glimepiride 1 mg 07/23/19 08:00 07/24/19 08:20 Amaryl PO 1 mg QAM-WM NATALIA Administration Cefazolin Sodium/Dextrose 2 gm 50 mls @ 100 mls/hr 07/22/19 19:00 07/24/19 10 :03 / Device IVPB 07/24/19 19:01 50 mls 0300,1100,1900 NATALIA Administration Insulin Human Lispro 0 units 07/22/19 18:07 07/24/19 11:41 Humalog SC 2 units .MILD SLIDING SCALE PRN Administration Mild Correctional Scale Morphine Sulfate 4 mg 07/22/19 14:25 07/23/19 15:50 Morphine SLOW IVP 4 mg Q1H PRN Administration Severe Breakthrough Pain Pantoprazole Sodium 40 mg 07/23/19 09:00 07/24/19 08:20 Protonix PO 40 mg DAILY NATALIA Administration Spironolactone 50 mg 07/23/19 09:00 07/24/19 08:20 Aldactone PO 50 mg QAM NATALIA Administration Tizanidine HCl 4 mg 07/22/19 14:25 07/24/19 12:30 Zanaflex PO 4 mg Q6H PRN Administration Muscle Spasm Tramadol HCl 100 mg 07/22/19 14:25 07/22/19 22:11 Ultram PO 100 mg Q6H PRN Administration Moderate Pain (4-6) - Exam General Appearance: NAD, awake alert Eye: PERRL ENT: normocephalic atraumatic, moist mucosa Neck: supple, symmetric Heart: RRR, no murmur, no gallops, no rubs Respiratory: CTAB, no wheezes, no rales, no ronchi Gastrointestinal: soft, non-tender, non-distended, no guarding, no rigidity Extremities: 1+ LE edema Skin: no lesions, no rashes Neurological: CN's grossly intact, normal sensation to touch, no focal deficits Musculoskeletal: normal strength Psychiatric: normal affect, A&O x 3 Hosp A/P (1) Diabetes mellitus Code(s): E11.9 - TYPE 2 DIABETES MELLITUS WITHOUT COMPLICATIONS Status: Acute (2) HTN (hypertension) Code(s): I10 - ESSENTIAL (PRIMARY) HYPERTENSION Status: Acute (3) HLD (hyperlipidemia) Code(s): E78.5 - HYPERLIPIDEMIA, UNSPECIFIED Status: Acute (4) S/P laminectomy Code(s): Z98.890 - OTHER SPECIFIED POSTPROCEDURAL STATES Status: Acute - Plan Plan: Surgery following, recommendations appreciated BP improved as pain is controlled D/c IV fluids, adequate PO intake PT/ OT Pain control DM diet Continue home medications as able ISS - low as needed May benefit from rehab GI PPX DVT PPX
[2019-07-24] MEDS: Atorvastatin Calcium 20 MG TAB PO SCH (21:49)
[2019-07-24] MEDS: Cyclobenzaprine 10 MG TAB PO SCH (21:49)
[2019-07-24] MEDS: traMADol HCl 50 MG TAB PO PRN (21:53)
[2019-07-24] MEDS: diphenhydrAMINE 25 MG CAP PO PRN (22:20)
[2019-07-25] MEDS: Glimepiride 2 MG TAB PO SCH (08:43)
[2019-07-25] MEDS: Atenolol 50 MG TAB PO SCH (08:44)
[2019-07-25] MEDS: Spironolactone 25 MG TAB PO SCH (09:36)
--- NOTE | 2019-07-25 10:59 | PDOC.HOSPP ---
- Subjective Subjective: Seen and examined. Continues to improve. Working well with therapy. Walking with front wheel walker. No longer having pain, numbness, or tingling in the leg. Wants to shower and get cleaned up with therapy today. Wants to go to rehab. - Objective Vital Signs & Weight: Vital Signs (12 hours) Temp Pulse Resp BP Pulse Ox 07/25/19 03:59 99.3 F 92 16 148/76 H 93 L 07/25/19 00:12 99.1 F 77 16 126/56 L 98 Weight Weight 200 lb I&O: 07/24/19 07/25/19 07/26/19 06:59 06:59 06:59 Intake Total 3215 3075 Output Total 1100 850 Balance 2115 2225 Additional Labs: Accuchecks 07/25/19 07/25/19 07/24/19 10:43 05:18 20:05 POC Glucose 146 H 89 137 H 07/24/19 07/24/19 16:31 11:20 POC Glucose 65 L 172 H Hospitalist ROS - Medication Medications: Active Medications Generic Name Dose Route Start Last Admin Trade Name Freq PRN Reason Stop Dose Admin Acetaminophen/Codeine Phosphate 1 tab 07/22/19 14:25 07/24/19 12:30 Tylenol #3 PO 1 tab Q3H PRN Administration Mild Pain (1-3) Acetaminophen/Codeine Phosphate 2 tab 07/22/19 14:25 07/24/19 18:09 Tylenol #3 PO 2 tab Q3H PRN Administration Moderate Pain (4-6) Atenolol 50 mg 07/23/19 09:00 07/25/19 08:44 Tenormin PO 50 mg QAM NATALIA Administration Atorvastatin Calcium 20 mg 07/23/19 21:00 07/24/19 21:49 Lipitor PO 20 mg HS NATALIA Administration Cyclobenzaprine HCl 10 mg 07/22/19 21:00 07/24/19 21:49 Flexeril PO 10 mg HS NATALIA Administration Diphenhydramine HCl 25 mg 07/22/19 14:25 07/24/19 22:20 Benadryl PO 25 mg Q6H PRN Administration Itching Glimepiride 1 mg 07/23/19 08:00 07/25/19 08:43 Amaryl PO 1 mg QAM-WM NATALIA Administration Insulin Human Lispro 0 units 07/22/19 18:07 07/24/19 11:41 Humalog SC 2 units .MILD SLIDING SCALE PRN Administration Mild Correctional Scale Morphine Sulfate 4 mg 07/22/19 14:25 07/23/19 15:50 Morphine SLOW IVP 4 mg Q1H PRN Administration Severe Breakthrough Pain Pantoprazole Sodium 40 mg 07/23/19 09:00 07/25/19 08:44 Protonix PO 40 mg DAILY NATALIA Administration Spironolactone 50 mg 07/23/19 09:00 07/25/19 09:36 Aldactone PO 50 mg QAM NATALIA Administration Tizanidine HCl 4 mg 07/22/19 14:25 07/24/19 12:30 Zanaflex PO 4 mg Q6H PRN Administration Muscle Spasm Tramadol HCl 100 mg 07/22/19 14:25 07/24/19 21:53 Ultram PO 100 mg Q6H PRN Administration Moderate Pain (4-6) - Exam General Appearance: NAD, awake alert Eye: PERRL Eye - other findings: EOMI ENT: no oropharyngeal lesions, moist mucosa Neck: supple, symmetric Heart: RRR, no murmur, no gallops, no rubs, normal peripheral pulses Respiratory: CTAB, no wheezes, no rales, no tachypnea Gastrointestinal: soft, non-tender, non-distended, no rigidity Extremities: 1+ LE edema Skin: no lesions, no rashes Neurological: CN's grossly intact, no weakness, no focal deficits Musculoskeletal: normal tone, no muscle wasting Psychiatric: normal affect, A&O x 3 Hosp A/P (1) Diabetes mellitus Code(s): E11.9 - TYPE 2 DIABETES MELLITUS WITHOUT COMPLICATIONS Status: Acute (2) HTN (hypertension) Code(s): I10 - ESSENTIAL (PRIMARY) HYPERTENSION Status: Acute (3) HLD (hyperlipidemia) Code(s): E78.5 - HYPERLIPIDEMIA, UNSPECIFIED Status: Acute (4) S/P laminectomy Code(s): Z98.890 - OTHER SPECIFIED POSTPROCEDURAL STATES Status: Acute - Plan Plan: Pending rehab placement, pending insurance approval Daily PT/ OT Surgery following, recommendations appreciated BP improved as pain is controlled D/c IV fluids, adequate PO intake Pain control DM diet Continue home medications as able ISS - low as needed GI PPX DVT PPX
--- NOTE | 2019-07-25 10:59 | PRG ---
DATE OF SERVICE: 07/25/2019 Ms. Bryan has had improvement in her leg pain in the postoperative period compared to preoperatively. She is mobilizing. I have discussed with her family procession to the inpatient rehab and we have placed the appropriate consultation. Her glycemic control has been adequate and she has remained afebrile. I should note a culture was done from her wound on July 22, which shows no growth. We will continue to mobilize her and I am pleased with how she is doing to-date. Job ID: [id number]
[2019-07-25] MEDS: Acetaminophen/Codeine 30-300mg Tablet PO PRN ×2 (11:59→20:40)
[2019-07-25] MEDS: Cyclobenzaprine 10 MG TAB PO SCH (20:37)
[2019-07-25] MEDS: Atorvastatin Calcium 20 MG TAB PO SCH (20:37)
[2019-07-26] MEDS: Acetaminophen/Codeine 30-300mg Tablet PO PRN ×2 (06:02→15:21)
[2019-07-26] MEDS ORDERED: Cephalexin 250 MG/5 ML Oral Suspension PO SCH (09:00)
[2019-07-26] MEDS: Atenolol 50 MG TAB PO SCH (09:11)
[2019-07-26] MEDS: Cephalexin 250 MG CAP PO SCH ×2 (09:12→12:37)
[2019-07-26] MEDS: Glimepiride 2 MG TAB PO SCH (09:12)
[2019-07-26] MEDS: Spironolactone 25 MG TAB PO SCH (09:41)
--- NOTE | 2019-07-26 12:40 | PDOC.HOSPP ---
- Subjective Subjective: Seen and examined. Sitting up in chair. Patient working well with therapy and excited to go to rehab. Slept well. Pain better controlled. No acute overnight events. No new complaints. - Objective Vital Signs & Weight: Vital Signs (12 hours) Temp Pulse Resp BP BP Pulse Ox 07/26/19 11:06 98.1 F 77 16 121/68 99 07/26/19 09:11 86 07/26/19 07:23 98.3 F 86 18 120/65 97 07/26/19 03:40 97.6 F 88 16 133/66 96 Weight Weight 200 lb I&O: 07/25/19 07/26/19 07/27/19 06:59 06:59 06:59 Intake Total 3075 840 Output Total 850 Balance 2225 840 Additional Labs: Accuchecks 07/26/19 07/26/19 07/25/19 11:06 05:23 20:59 POC Glucose 179 H 117 H 143 H 07/25/19 16:58 POC Glucose 126 H Hospitalist ROS - Review of Systems All other systems reviewed; all pertinent +/- noted in HPI/Subj - Medication Medications: Active Medications Generic Name Dose Route Start Last Admin Trade Name Freq PRN Reason Stop Dose Admin Acetaminophen/Codeine Phosphate 1 tab 07/22/19 14:25 07/24/19 12:30 Tylenol #3 PO 1 tab Q3H PRN Administration Mild Pain (1-3) Acetaminophen/Codeine Phosphate 2 tab 07/22/19 14:25 07/26/19 06:02 Tylenol #3 PO 2 tab Q3H PRN Administration Moderate Pain (4-6) Atenolol 50 mg 07/23/19 09:00 07/26/19 09:11 Tenormin PO 50 mg QAM NATALIA Administration Atorvastatin Calcium 20 mg 07/23/19 21:00 07/25/19 20:37 Lipitor PO 20 mg HS NATALIA Administration Bisacodyl 10 mg 07/22/19 14:25 07/26/19 10:43 Dulcolax VA 10 mg Q12H PRN Administration Constipation Cephalexin 500 mg 07/26/19 09:00 07/26/19 12:37 Keflex PO 500 mg QID NATALIA Administration Cyclobenzaprine HCl 10 mg 07/22/19 21:00 07/25/19 20:37 Flexeril PO 10 mg HS NATALIA Administration Diphenhydramine HCl 25 mg 07/22/19 14:25 07/24/19 22:20 Benadryl PO 25 mg Q6H PRN Administration Itching Glimepiride 1 mg 07/23/19 08:00 07/26/19 09:12 Amaryl PO 1 mg QAM-WM NATALIA Administration Insulin Human Lispro 0 units 07/22/19 18:07 07/24/19 11:41 Humalog SC 2 units .MILD SLIDING SCALE PRN Administration Mild Correctional Scale Morphine Sulfate 4 mg 07/22/19 14:25 07/23/19 15:50 Morphine SLOW IVP 4 mg Q1H PRN Administration Severe Breakthrough Pain Pantoprazole Sodium 40 mg 07/23/19 09:00 07/26/19 09:12 Protonix PO 40 mg DAILY NATALIA Administration Spironolactone 50 mg 07/23/19 09:00 07/26/19 09:41 Aldactone PO 50 mg QAM NATALIA Administration Tizanidine HCl 4 mg 07/22/19 14:25 07/24/19 12:30 Zanaflex PO 4 mg Q6H PRN Administration Muscle Spasm Tramadol HCl 100 mg 07/22/19 14:25 07/24/19 21:53 Ultram PO 100 mg Q6H PRN Administration Moderate Pain (4-6) - Exam General Appearance: awake alert Eye: anicteric sclera Eye - other findings: EOMI ENT: no oropharyngeal lesions, moist mucosa Neck: supple, no thyromegaly Heart: RRR, no murmur, no gallops, no rubs, normal peripheral pulses Respiratory: CTAB, no wheezes, no rales, no ronchi Gastrointestinal: soft, non-tender, non-distended, normal bowel sounds, no guarding, no rigidity Extremities: no edema Skin: no lesions, no rashes Neurological: CN's grossly intact, no weakness Musculoskeletal: no muscle wasting Psychiatric: normal affect, A&O x 3 Hosp A/P (1) Diabetes mellitus Code(s): E11.9 - TYPE 2 DIABETES MELLITUS WITHOUT COMPLICATIONS Status: Acute (2) HTN (hypertension) Code(s): I10 - ESSENTIAL (PRIMARY) HYPERTENSION Status: Acute (3) HLD (hyperlipidemia) Code(s): E78.5 - HYPERLIPIDEMIA, UNSPECIFIED Status: Acute (4) S/P laminectomy Code(s): Z98.890 - OTHER SPECIFIED POSTPROCEDURAL STATES Status: Acute - Plan Plan: Pending rehab placement, pending insurance approval Daily PT/ OT Surgery following, recommendations appreciated BP controlled on home regimen, no longer elevated as pain controlled D/c IV fluids, adequate PO intake Pain control DM diet Continue home medications as able ISS - low as needed GI PPX DVT PPX
[2019-07-26] MEDS: HumaLOG 300 UNITS/3 ML VIAL SC PRN (13:35)
[2019-07-26 16:02] VITALS: BP 155/70; TEMP 98.9
== END 2019-07-26 16:15 | DRG 455 ==
LOC: SURG A 07-22 05:40
PROVIDERS: ADMIT Neurological Surgery; ATTEND Neurological Surgery
PROC: 0SG10AJ Fusion of 2 or more Lumbar Vertebral Joints with Interbody Fusion Device, Posterior Approach, Anterior Column, Open Approach (ICD-10-PCS; principal; 2019-07-22)
PROC: 0SG1071 Fusion of 2 or more Lumbar Vertebral Joints with Autologous Tissue Substitute, Posterior Approach, Posterior Column, Open Approach (ICD-10-PCS; 2019-07-22)
PROC: 0SB20ZZ Excision of Lumbar Vertebral Disc, Open Approach (ICD-10-PCS; 2019-07-22)
PROC: 01NB0ZZ Release Lumbar Nerve, Open Approach (ICD-10-PCS; 2019-07-22)
PROC: 00UT0JZ Supplement Spinal Meninges with Synthetic Substitute, Open Approach (ICD-10-PCS; 2019-07-22)
DX: M51.16 Intervertebral disc disorders with radiculopathy, lumbar region (principal); M43.06 Spondylolysis, lumbar region; M48.061 Spinal stenosis, lumbar region without neurogenic claudication; I10 Essential (primary) hypertension; G96.19 Other disorders of meninges, not elsewhere classified; M19.90 Unspecified osteoarthritis, unspecified site; E78.00 Pure hypercholesterolemia, unspecified; E11.9 Type 2 diabetes mellitus without complications; K21.9 Gastro-esophageal reflux disease without esophagitis; K52.9 Noninfective gastroenteritis and colitis, unspecified; Z96.652 Presence of left artificial knee joint; Z88.8 Allergy status to other drugs, medicaments and biological substances; Z79.84 Long term (current) use of oral hypoglycemic drugs; Z79.899 Other long term (current) drug therapy; Z90.49 Acquired absence of other specified parts of digestive tract
CPT/HCPCS: 36416; 76000; 87070; 87205; C1713; C1768; J0131; J0670; J0690; J1100; J1885; J2001; J2270; J2405; J2704; J2765; J3010; J3370; J3490; Q0163; S0028

== ENCOUNTER 2019-09-09 14:23 | Outpatient (CLI) | payer MEDICARE ==
--- NOTE | 2019-09-09 14:49 | RAD ---
RIGHT KNEE 3 VIEWS: Date: 09/09/19 HISTORY: Right knee pain. FINDINGS: Degenerative changes are present. No fracture, dislocation, or bony destruction identified. IMPRESSION: Right knee osteoarthritis. POS: TPC
== END 2019-09-09 14:24 | disposition home or self-care (01) ==
LOC: BICRAD 14:23
PROVIDERS: ATTEND Family Medicine
DX: M25.561 Pain in right knee (principal); M17.11 Unilateral primary osteoarthritis, right knee

== ENCOUNTER 2019-09-22 13:52 | Outpatient (CLI) | payer MEDICARE ==
--- NOTE | 2019-09-22 14:20 | RAD ---
XR Lumbar Spine 2 Or 3 View History: Low back pain Comparison: CT examination April 29, 2019 Findings: Relative to the prior examination there is been revision of the posterior spinal fusion jhony dware now spanning L3-S1. New L4-5 and L3-4 discectomy cages are without migration. No acute superimposed fracture. Upper quadrant surgical clips. Numerous phleboliths in the pelvis. Impression: Satisfactory postoperative appearance of the hardware revision.
== END 2019-09-22 13:53 | disposition home or self-care (01) ==
LOC: TBSIIMAG 13:52
PROVIDERS: ATTEND Neurological Surgery
DX: M54.5 Low back pain (principal); Z98.890 Other specified postprocedural states
CPT/HCPCS: 72100

== ENCOUNTER 2020-01-05 09:09 | Outpatient (CLI) | payer MEDICARE ==
--- NOTE | 2020-01-05 12:42 | MMO ---
Bilateral MAMMO Bilat Screen [facility]. CLINICAL HISTORY: Patient is 79 years old and is seen for screening. The patient has no family history of breast cancer. The patient has no personal history of cancer. The patient has a history of right Ultrasound Guided Core Biopsy in November, - findings compatible with hyalinized fibroadenoma and and right Excisional Biopsy at age 51 - benign - (2 times). VIEWS: The views performed were: bilateral craniocaudal with tomosynthesis; bilateral mediolateral oblique; and bilateral mediolateral oblique with tomosynthesis. FILMS COMPARED: The present examination has been compared to prior imaging studies performed at [facility] on 11/20/2015, 12/25/2016, 12/30/2017 and 01/03/2019. This study has been interpreted with the assistance of computer-aided detection. MAMMOGRAM FINDINGS: There are scattered fibroglandular densities. Benign calcifications are noted bilaterally. Right biopsy clip. There are no suspicious masses, suspicious calcifications, or new areas of architectural distortion. IMPRESSION: THERE IS NO MAMMOGRAPHIC EVIDENCE OF MALIGNANCY. A ROUTINE FOLLOW-UP MAMMOGRAM IN 1 YEAR IS RECOMMENDED. THE RESULTS OF THIS EXAM WERE SENT TO THE PATIENT. ACR BI-RADS Category 2 - Benign finding MAMMOGRAPHY NOTE: 1. A negative mammogram report should not delay a biopsy if a dominant of clinically suspicious mass is present. 2. Approximately 10% to 15% of breast cancers are not detected by mammography. 3. Adenosis and dense breasts may obscure an underlying neoplasm. Reported by: YOMI DANIELSON MD Electonically Signed: [id number]
== END 2020-01-05 09:10 | disposition home or self-care (01) ==
LOC: BICMAMMO 09:09
PROVIDERS: ATTEND Family Medicine
DX: Z12.31 Encounter for screening mammogram for malignant neoplasm of breast (principal)
CPT/HCPCS: 77063; 77067

== ENCOUNTER 2020-06-18 09:22 | Outpatient (CLI) | payer MEDICARE, MEDICAID ==
--- NOTE | 2020-06-18 14:44 | NM ---
EXAM: NM Bone Scan Three Phase DATE: 06/18/2020 10:00 AM INDICATION: Painful left total knee prosthesis COMPARISON: None. FINDIN.5 mCi of technetium 99m HDP IV was utilized. A three-phase bone scan was formed. There is normal blood flow, blood pool and delayed phase activity surrounding the left knee. Mild candis unt of activity seen on delayed phase activity surrounding the prosthesis of the left knee which is likely within normal limits. There is degenerative activity involving the right knee with mild surrou nding soft tissue reticulation likely related to some reactive inflammatory change. Degenerative activity seen involving the shoulders, sternoclavicular joints, spine, wrists, feet and ankle on the delayed phase whole body images. IMPRESSION: 1. Normal three-phase bone scan of the left total knee. Mild amount of activity is seen surrounding t he prosthetic components which is within normal limits on a knee arthroplasty. 2. Degenerative activity of the right knee with mild surrounding soft tissue swelling of the right kn ee. Additional degenerative activity of the axial and appendicular skeleton as above.
== END 2020-06-18 09:23 | disposition home or self-care (01) ==
LOC: NM 09:22
PROVIDERS: ATTEND Specialist
DX: T84.84XA Pain due to internal orthopedic prosthetic devices, implants and grafts, initial encounter (principal); M17.12 Unilateral primary osteoarthritis, left knee; Z96.652 Presence of left artificial knee joint
CPT/HCPCS: 78315; A9503

== ENCOUNTER 2020-06-20 07:39 | Outpatient (CLI) | payer MEDICARE, MEDICAID ==
--- NOTE | 2020-06-20 08:14 | ULT ---
US Abdominal: 06/20/2020 12:00 AM CLINICAL HISTORY: Abdominal pain. STUDY: Complete abdominal ultrasound COMPARISON: None. FINDINGS: Liver: Size: Normal. Echogenicity: Hyperechoic consistent with hepatic steatosis. Contour: Smooth. Mass: None. Common bile duct: 6 mm Gallbladder: Removed Pancreas: Not well visualized Inferior vena cava: Normal in caliber Aorta: Normal in caliber Spleen: No focal lesions. Spleen measuring 9.6 cm in length. Right kidney: No pelvicalyceal dilatation. 1.5 cm cyst. Right kidney measuring 9.7 cm in length. Left kidney: No pelvicalyceal dilatation. Left kidney measuring 9.5 cm in length. IMPRESSION: 1. Fatty liver 2. Right renal cyst
== END 2020-06-20 07:40 | disposition home or self-care (01) ==
LOC: BICULT 07:39
PROVIDERS: ATTEND Family Medicine
DX: R10.10 Upper abdominal pain, unspecified (principal); K76.0 Fatty (change of) liver, not elsewhere classified; N28.1 Cyst of kidney, acquired
CPT/HCPCS: 93975

== ENCOUNTER 2020-06-21 09:22 | Outpatient (CLI) | payer MEDICARE, MEDICAID ==
--- NOTE | 2020-06-21 11:16 | ULT ---
US Thyroid STANDARD History: Thyroid nodule Comparison: Ultrasound thyroid April 2019 Findings: Real-time grayscale and color evaluation of the thyroid was performed. Isthmus measures 5 mm in AP dimension. Small coarse calcification right lobe of thyroid measuring 3 m m. No right lobe nodule. Background vascularity is normal. In the left lobe the dominant nodule measures up to 2.7 cm in size, unchanged from the comparison exa m. Previously described 5 mm nodule between the right lobe of the thyroid and the isthmus is not seen on today's exam. Impression: Size unchanged left thyroid nodule with nonvisualization of the previously described TI-R ADS 5 small nodule of the right lobe adjacent to the isthmus. Follow-up ultrasound in one year can be performed to reevaluate this nodule as this was the initial recommendation on the 2019 exam.
== END 2020-06-21 09:23 | disposition home or self-care (01) ==
LOC: BICULT 09:22
PROVIDERS: ATTEND Otolaryngology Plastic Surgery within the Head & Neck
DX: E04.1 Nontoxic single thyroid nodule (principal)
CPT/HCPCS: 76536

== ENCOUNTER 2020-11-27 09:29 | Outpatient (CLI) | payer MEDICARE, MEDICAID ==
--- NOTE | 2020-11-27 10:07 | RAD ---
EXAM: XR Hips Bilat 3-4 View PROVIDED CLINICAL HISTORY: Pain FINDINGS: There is no evidence for fracture or other acute osseous abnormality. Alignment appears anatomic. Stella nt spaces appear preserved. Bilateral sacroiliac joint degenerative change. Postoperative changes are seen involving the lumbar spine. IMPRESSION: No evidence for an acute osseous abnormality or significant arthropathy involving either hip.
--- NOTE | 2020-11-27 10:10 | RAD ---
EXAM: 2 views lumbar spine PROVIDED CLINICAL HISTORY: Back pain COMPARISON: 04/18/2020 FINDINGS: 5 nonrib-bearing lumbar-type vertebral bodies are demonstrated. Bilateral pedicle screws and vertical interconnecting rods span L3-S1 with intervening intervertebral disc devices. Laminectomy changes are also seen at these levels. No evidence for hardware loosening or migration. There is right convex ity scoliosis of the lower thoracic and lumbar spine. Sagittal lumbar alignment appears unchanged. Prominent disc degenerative change at L2-3 with more conspicuous loss of disc space height at this le svetlana. Vertebral body heights appear preserved. IMPRESSION: Postoperative and degenerative changes involving the lumbar spine as described.
== END 2020-11-27 09:30 | disposition home or self-care (01) ==
LOC: BICRAD 09:29
PROVIDERS: ATTEND Family Medicine
DX: M25.552 Pain in left hip (principal); M54.42 Lumbago with sciatica, left side; M47.816 Spondylosis without myelopathy or radiculopathy, lumbar region; Z98.890 Other specified postprocedural states
CPT/HCPCS: 72100; 73522

== ENCOUNTER 2020-12-01 21:02 | Emergency (ER) | payer MEDICARE, MEDICAID ==
[2020-12-01] MEDS ORDERED: Morphine 4 MG/ML VIAL ONE (21:21)
== END 2020-12-01 22:09 | disposition home or self-care (01) ==
LOC: ERS 21:02
DX: G89.29 Other chronic pain (principal); M25.559 Pain in unspecified hip; M25.519 Pain in unspecified shoulder; M54.32 Sciatica, left side; I10 Essential (primary) hypertension; Z79.899 Other long term (current) drug therapy; E11.9 Type 2 diabetes mellitus without complications; E78.00 Pure hypercholesterolemia, unspecified
CPT/HCPCS: 96372; 99283; J2270

== ENCOUNTER 2020-12-04 13:28 | Outpatient (CLI) | payer MEDICARE, MEDICAID ==
--- NOTE | 2020-12-04 15:13 | MRI ---
MRI LUMBAR SPINE NONCONTRAST: DATE: 12/04/2020 HISTORY: 80-year-old female with "M 54.42, acute midline low back pain with left-sided sciatica" COMPARISON: 04/20/2019 FINDINGS: Exaggerated lordosis. There is a transitional level at lumbosacral junction. Review of previous chest CT and lumbar spine CT demonstrates 12 fully developed paired ribs. For the purposes of this report, the first nonrib-bearing lumbar-type vertebra will be designated as L1. The lumbosacral transitional level will be designated as L6. Dysplastic right L6 transverse process pseudoarticulating with right S1 ala. There is ankylosis of the left S1 dysplastic transverse process with the left S1 ala. Using this designation of levels, the conus medullaris terminates at L1-2 or upper L2. Again noted are the bilateral pedicle screws at L5 and S1. There are new bilateral pedicle screws at L3 and L4. Previously, there was a wide decompressive laminectomy defect from L3-4 through L5-6. Now, the wide decompressive laminectomy has been extended such that it ranges from L2-3 through L5-6. Previously, a small postoperative fluid collection was demonstrated posterior to the thecal sac at th e L4-5 through L5-6 levels. Now, the postoperative fluid collection is much larger, extending from L3 through L6-S1. It is currently 6 cm transverse x 2.6 cm AP x 7.6 cm craniocaudal. It follows CSF signal intensity on all pulse sequences. T11 -12: Moderate disc space narrowing. Disc protrusions at indents the ventral surface of the lower spinal cord, unchanged since prior study. Axial images were not obtained through this level. Moderate bilateral neural foraminal stenosis. T12-L1:. Broad-based disc protrusion indents ventral surface of spinal cord, similar to prior study. Mild to moderate bilateral neural foraminal stenosis. Ligamentum flavum thickening, mild. Mild central spinal canal stenosis. Mild-moderate thecal sac stenosis. Probably no significant change. Axi al images performed on current study, but not previously through this level. L1-2:Broad-based disc protrusion. Disc space maintained. Minimal retrolisthesis of L1 on L2. Mild to moderate ligamentum flavum thickening. Mild central spinal canal stenosis. No significant right neural foraminal stenosis. Mild to moderate left neural foraminal stenosis. L2-3:New retrolisthesis of L2 on L3. New moderate disc space narrowing. New endplate irregularities, Schmorl's nodes, and Modic type I endplate marrow edema. Disc bulge. The new laminectomy results in generous AP dimension of the spinal canal and thecal sac. Mild narrowing of the transverse dimension. Degenerative facet hypertrophy bilaterally. New moderate to severe right and severe left neural foraminal stenosis, with significant impingement on left exiting L2 nerve root. Left neural foraminal fat is completely effaced. This neural foramen is filled with material that is T1 hypointense and T2 hypointense, new since the prior MRI. It could represent extruded herniated disc material or posts urgical scar tissue. A contrast-enhanced MRI would be of distinguish between the 2 possibilities. L3-4:Moderate disc space narrowing. Interval worsening of endplate degenerative changes. Generous moisés iber of thecal sac from laminectomy. The previously demonstrated central and bilateral paracentral components of the prominent disc bulge are no longer present. Neural foramina difficult to evaluate b ecause of magnetic susceptibility artifact from hardware. Perhaps mild or moderate stenosis bilaterally. L4-5:New mild grade 1 anterolisthesis of L4 on L5. The previously demonstrated diffuse disc bulge is smaller now at its central and bilateral paracentral components. Generous caliber of thecal sac from laminectomy as was the case previously, but now even larger caliber of thecal sac than before. D ifficult to evaluate neural foramina because of magnetic susceptibility artifact. Questionable mild to moderate bilateral neural foraminal stenosis. L5-6::Prominent grade 1 anterolisthesis of L5 on L6 again noted. High-grade degenerative disc disease again noted. Difficult to evaluate neural foramina because of hardware. Possible mild or moderate bilateral neural foraminal stenosis. Generous caliber of spinal canal and thecal sac. L6-S1: Slightly hypoplastic intervertebral disc. No acquired central or neural foraminal stenosis. No interval change. 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 (The designation of levels on this report di ffers from those of the lumbar spine MRI of 04/20/[address] lumbar myelogram of 04/29/2019). 2) interval revision of previously demonstrated surgery, with more cephalad extent. Now, pedicle scre ws are present at all levels from L3 through L6. Wide decompressive laminectomies now from L2-3 through L5-6. 3) large postoperative fluid collection posterior to the levels of laminectomy, from L3 through L6-S1 . This could be a pseudomeningocele or postoperative hematoma-seroma. 4) high-grade lumbar spondylosis consisting of multilevel high-grade degenerative disc disease. 5) interval development of high-grade degenerative disc disease at L2-3. 6) interval development of new grade 1 spondylolisthesis at L4-5. 7) more prominent grade 1 spondylolisthesis at L5-6 is unchanged. 8) multilevel neural foraminal stenosis. The worst appears to be on the left at L2-3, new, due to mat erial in the neural foramen which could either represent extruded herniated disc material or postsurgical scar tissue. A contrast-enhanced MRI would be able to distinguish between the 2.
== END 2020-12-04 13:29 | disposition home or self-care (01) ==
LOC: BICMRI 13:28
PROVIDERS: ATTEND Family Medicine
DX: M51.16 Intervertebral disc disorders with radiculopathy, lumbar region (principal); M47.816 Spondylosis without myelopathy or radiculopathy, lumbar region; M43.16 Spondylolisthesis, lumbar region; M48.061 Spinal stenosis, lumbar region without neurogenic claudication; Z98.890 Other specified postprocedural states
CPT/HCPCS: 72148

== ENCOUNTER 2021-01-15 08:49 | Outpatient (CLI) | payer MEDICARE, MEDICAID ==
--- NOTE | 2021-01-15 09:40 | MMO ---
Bilateral MAMMO Bilat Screen [facility]. CLINICAL HISTORY: Patient is 80 years old and is seen for screening. The patient has no family history of breast cancer. The patient has no personal history of cancer. The patient has a history of right Ultrasound Guided Core Biopsy in November, - findings compatible with hyalinized fibroadenoma and and right Excisional Biopsy at age 51 - benign - (2 times). VIEWS: The views performed were: bilateral craniocaudal with tomosynthesis and bilateral mediolateral oblique with tomosynthesis. FILMS COMPARED: The present examination has been compared to prior imaging studies performed at [facility] on 12/25/2016, 12/30/2017, 01/03/2019 and 01/05/2020. This study has been interpreted with the assistance of computer-aided detection. MAMMOGRAM FINDINGS: Finding 1: There is a stable biopsy clip seen in the right breast. Finding 2: There is a stable nodule seen in the upper-outer region of the left breast. There are no suspicious masses, suspicious calcifications, or new areas of architectural distortion. IMPRESSION: THERE IS NO MAMMOGRAPHIC EVIDENCE OF MALIGNANCY. A ROUTINE FOLLOW-UP MAMMOGRAM IN 1 YEAR IS RECOMMENDED. THE RESULTS OF THIS EXAM WERE SENT TO THE PATIENT. ACR BI-RADS Category 2 - Benign finding MAMMOGRAPHY NOTE: 1. A negative mammogram report should not delay a biopsy if a dominant of clinically suspicious mass is present. 2. Approximately 10% to 15% of breast cancers are not detected by mammography. 3. Adenosis and dense breasts may obscure an underlying neoplasm. Reported by: DAMARIS CISNEROS MD Electonically Signed: [id number]
== END 2021-01-15 08:50 | disposition home or self-care (01) ==
LOC: BICMAMMO 08:49
PROVIDERS: ATTEND Family Medicine
DX: Z12.31 Encounter for screening mammogram for malignant neoplasm of breast (principal); Z91.89 Other specified personal risk factors, not elsewhere classified
CPT/HCPCS: 77063; 77067

== ENCOUNTER 2021-02-25 12:58 | Outpatient (CLI) | payer MEDICARE, MEDICAID | END 2021-02-25 12:59 | disposition home or self-care (01) | LOC: BICMRI 12:58 | PROVIDERS: ATTEND Family Medicine | DX: M54.2 Cervicalgia (principal); Z87.898 Personal history of other specified conditions; K21.9 Gastro-esophageal reflux disease without esophagitis; R07.9 Chest pain, unspecified; E11.9 Type 2 diabetes mellitus without complications; M47.812 Spondylosis without myelopathy or radiculopathy, cervical region; G93.89 Other specified disorders of brain | CPT/HCPCS: 70551; 72141 ==

== ENCOUNTER 2021-04-11 10:24 | Outpatient (CLI) | payer MEDICARE, MEDICAID | END 2021-04-11 10:25 | disposition home or self-care (01) | LOC: BICMAMMO 10:24 | PROVIDERS: ATTEND Family Medicine | DX: Z13.820 Encounter for screening for osteoporosis (principal); M85.851 Other specified disorders of bone density and structure, right thigh; M85.852 Other specified disorders of bone density and structure, left thigh | CPT/HCPCS: 77080 ==

== ENCOUNTER 2021-05-10 09:21 | Outpatient (CLI) | payer MEDICARE, MEDICAID ==
[2021-05-10] MEDS ORDERED: Magnevist 469MG/ML 20 ML VIAL ONE ×2 (10:48)
== END 2021-05-10 09:22 | disposition home or self-care (01) ==
LOC: BICMRI 09:21
PROVIDERS: ATTEND Family Medicine
DX: G44.209 Tension-type headache, unspecified, not intractable (principal); M54.2 Cervicalgia; Z87.898 Personal history of other specified conditions; M47.812 Spondylosis without myelopathy or radiculopathy, cervical region; M48.02 Spinal stenosis, cervical region
CPT/HCPCS: 70553; 72156; 82565

== ENCOUNTER 2021-11-11 10:34 | Outpatient (CLI) | payer MEDICARE, OTHER | END 2021-11-11 10:35 | disposition home or self-care (01) | LOC: BICRAD 10:34 | PROVIDERS: ATTEND Family Medicine | DX: M79.645 Pain in left finger(s) (principal); R68.84 Jaw pain; M19.032 Primary osteoarthritis, left wrist | CPT/HCPCS: 70100 ==

== ENCOUNTER 2022-01-22 11:04 | Outpatient (CLI) | payer MEDICARE | END 2022-01-22 11:05 | disposition home or self-care (01) | LOC: BICMAMMO 11:04 | PROVIDERS: ATTEND Family Medicine | DX: Z12.31 Encounter for screening mammogram for malignant neoplasm of breast (principal); Z91.89 Other specified personal risk factors, not elsewhere classified | CPT/HCPCS: 77063; 77067 ==